=== PATIENT | female | born 1970 | race American Indian/Alaskan Native ===

== ENCOUNTER 2016-09-21 23:23 | Emergency (ER) | payer SELFPAY ==
[2016-09-22 01:08] LABS: Basophils % (Auto) 0.2 % (0.0-1.8); Eosinophils % (Auto) 1.2 % (0.0-4.3); Mean Corpuscular HGB Conc 31 % (30-34); Mean Corpuscular Hemoglobin 22 pg (28-32); Mean Corpuscular Volume 71 fl (79-97); Platelet Count 594 K/mm3 (140-440); Red Blood Count 4.11 M/mm3 (3.65-5.03); Red Cell Distribution Width 19.2 % (13.2-15.2); White Blood Count 10.5 K/mm3 (4.5-11.0)
[2016-09-22 02:19] LABS: Bilirubin,Urine NEG (Negative); Blood,Urine LG (Negative); Ketones,Urine NEG (Negative); Leukocyte Esterase,Urine SM (Negative); Mucus,Urine FEW /HPF; Nitrite,Urine NEG (Negative); Protein,Urine <15 mg/dL mg/dL (Negative); Urobilinogen,Urine < 2.0 mg/dL (<2.0)
--- NOTE | 2016-09-22 02:35 | Emergency Department Report ---
ED General Adult HPI - General Chief complaint: Vaginal Bleeding Stated complaint: VAGINAL BLEEDING Time Seen by Provider: 09/22/16 02:11 Source: patient Mode of arrival: Ambulatory Limitations: No Limitations - History of Present Illness Initial comments: This is a 46-year-old female. She is previously unknown to me. [place] She does not have a primary care doctor. She does not have any chronic medical conditions. The patient presents to the ER complaining of vaginal bleeding. She reports that after April, her menstruation stopped. She reports that it began again in June. She reports essentially intermittent bleeding since June. She reports that the bleeding has recently increased. She reports unintentional weight gain. In the past 24 hours, she has used 7 pads. There is no headache, neck pain, chest pain, abdominal pain or shortness of breath. No dizziness or lightheadedness. No irritative or obstructive urinary symptoms. Symptoms have no exacerbating or relieving factors. She reports that she is not . -: Gradual Consistency: intermittent Improves with: none Worsens with: none Associated Symptoms: denies: confusion, chest pain, cough, diaphoresis, fever/ chills, headaches, loss of appetite, malaise, nausea/vomiting, rash, shortness of breath, syncope, weakness - Related Data Previous Rx's Medication Instructions Recorded Last Taken Type Ferrous Sulfate [Feosol 325 MG tab] 325 mg PO TID #90 tablet 09/22/16 Unknown Rx Allergies Allergy/AdvReac Type Severity Reaction Status Date / Time Penicillins Allergy Rash Verified 09/22/16 00:46 ED Review of Systems ROS: Stated complaint: VAGINAL BLEEDING Other details as noted in HPI Constitutional: denies: fever Eyes: denies: vision change ENT: denies: epistaxis Respiratory: denies: cough Cardiovascular: denies: chest pain Gastrointestinal: as per HPI. denies: vomiting Genitourinary: abnormal menses Musculoskeletal: denies: arthralgia Skin: denies: lesions Neurological: denies: weakness Psychiatric: anxiety ED Past Medical Hx - Past Medical History Previous Medical History?: No - Surgical History Past Surgical History?: No - Social History Smoking Status: Never Smoker Substance Use Type: Alcohol - Medications Home Medications: Home Medications Medication Instructions Recorded Confirmed Last Taken Type Ferrous Sulfate [Feosol 325 MG tab] 325 mg PO TID #90 tablet 09/22/16 Unknown Rx ED Physical Exam - General Limitations: No Limitations General appearance: alert, in no apparent distress - Head Head exam: Present: atraumatic, normocephalic - Eye Eye exam: Present: normal appearance, EOMI. Absent: nystagmus - ENT ENT exam: Present: normal exam, normal orophraynx, mucous membranes moist, normal external ear exam - Neck Neck exam: Present: normal inspection, full ROM. Absent: tenderness, meningismus - Respiratory Respiratory exam: Present: normal lung sounds bilaterally. Absent: respiratory distress, wheezes, rales, rhonchi, stridor, chest wall tenderness, accessory muscle use, decreased breath sounds, prolonged expiratory - Cardiovascular Cardiovascular Exam: Present: regular rate, normal rhythm, normal heart sounds. Absent: bradycardia, tachycardia, irregular rhythm, systolic murmur, diastolic murmur, rubs, gallop - GI/Abdominal GI/Abdominal exam: Present: soft, normal bowel sounds. Absent: distended, tenderness, guarding, rebound, rigid, pulsatile mass - Extremities Exam Extremities exam: Present: normal inspection, full ROM, normal capillary refill. Absent: tenderness, pedal edema, joint swelling, calf tenderness - Back Exam Back exam: Present: normal inspection, full ROM. Absent: tenderness, CVA tenderness (R), CVA tenderness (L), muscle spasm, paraspinal tenderness, vertebral tenderness - Neurological Exam Neurological exam: Present: alert, oriented X3, normal gait, other (Extraocular movements intact. Tongue midline. No facial droop. Facial sensation intact to light touch in the V1, V2, V3 distribution bilaterally. 5 and 5 strength in 4 extremities.. Sensation is intact to light touch in 4 extremities.). Absent : motor sensory deficit - Psychiatric Psychiatric exam: Present: normal affect, normal mood - Skin Skin exam: Present: warm, dry, intact, normal color. Absent: rash ED Course Vital Signs 09/22/16 09/22/16 09/22/16 00:39 02:51 02:52 Temperature 97.9 F Pulse Rate 80 71 Respiratory 16 16 Rate Blood Pressure 184/117 Blood Pressure 151/73 [Left] O2 Sat by Pulse 100 100 100 Oximetry - Reevaluation(s) Reevaluation #1: 09/22/16 02:34 Differential diagnosis: Menstruation, , dysfunctional uterine bleeding , menopause Assessment and plan: 46-year-old female with intermittent vaginal bleeding for months. She is afebrile with reassuring vital signs with the exception of hypertension and elevated blood pressure. Has a mild microcytic anemia, is not symptomatic at this time. She is not . Symptoms are most likely consistent with menopause. 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 Elevated blood pressure is appreciated, it is asymptomatic, and the patient is instructed as to the importance of outpatient follow-up for further evaluation and management. Her repeat blood pressure is 168/105, and is asymptomatic. There does not appear to be any emergent condition at this time, the patient is medically suitable to follow-up as an outpatient. She will be discharged at this time, return precautions are reviewed. ED Medical Decision Making - Lab Data Result diagrams: 09/22/16 00:52 Vital Signs 09/22/16 00:39 Temperature 97.9 F Pulse Rate 80 Blood Pressure 184/117 O2 Sat by Pulse 100 Oximetry Lab Results 09/22/16 09/22/16 09/22/16 Range/Units 00:52 00:52 01:46 WBC 10.5 (4.5-11.0) K/mm3 RBC 4.11 (3.65-5.03) M/mm3 Hgb 9.0 L (10.1-14.3) gm/dl Hct 29.0 L (30.3-42.9) % MCV 71 L (79-97) fl MCH 22 L (28-32) pg MCHC 31 (30-34) % RDW 19.2 H (13.2-15.2) % Plt Count 594 H (140-440) K/mm3 Lymph % (Auto) 27.6 (13.4-35.0) % Saunders % (Auto) 7.8 H (0.0-7.3) % Eos % (Auto) 1.2 (0.0-4.3) % Baso % (Auto) 0.2 (0.0-1.8) % Lymph # 2.9 (1.2-5.4) K/mm3 Saunders # 0.8 (0.0-0.8) K/mm3 Eos # 0.1 (0.0-0.4) K/mm3 Baso # 0.0 (0.0-0.1) K/mm3 Seg Neutrophils % 63.2 (40.0-70.0) % Seg Neutrophils # 6.6 (1.8-7.7) K/mm3 HCG, Quant < 2 (0-4) mIU/mL Urine Bilirubin Neg (Negative) Urine RBC (Auto) 132.0 (0.0-6.0) /HPF U Epithel Cells (Auto) 4.0 (0-13.0) /HPF Critical care attestation.: If time is entered above; I have spent that time in minutes in the direct care of this critically ill patient, excluding procedure time. ED Disposition Clinical Impression: Vaginal bleeding, Elevated blood pressure Disposition: DISCHARGED TO HOME OR SELFCARE Is pt being admited?: No Does the pt Need Aspirin: No Condition: Stable Instructions: Menopause (ED) Additional Instructions: Laboratory studies indicated at urine . Laboratory studies indicated minimal anemia. Take the iron sulfate supplementation as directed. This medication may constipate, and may turn the color of stool to black. 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 In addition, your blood pressure was elevated in the emergency department. This should be followed up by her primary care doctor within the recommended timeframe. It is very important to manage blood pressure appropriately with an outpatient primary care doctor, because hypertension came cause long-term complications such as stroke, heart attack, disability, , paralysis. Return to the ER right away with bleeding more than 2 pads per hour, dizziness, lightheadedness, chest pain, shortness of breath, new, worsening or different symptoms. Prescriptions: Ferrous Sulfate [Feosol 325 MG tab] 325 mg PO TID #90 tablet Referrals: PRIMARY MD SEAN [Primary Care Provider] - 3-5 Days TATYANA ROSAS MD [Staff Physician] - 3-5 Days [facility] [Provider Group] - 3-5 Days [facility] [Provider Group] - 3-5 Days [facility] [Provider Group] - 3-5 Days [facility] [Provider Group] - 3-5 Days
[2016-09-22 02:53] VITALS: BP 151/73
== END 2016-09-22 03:00 | disposition home or self-care (01) ==
LOC: ED 23:23
DX: N93.9 Abnormal uterine and vaginal bleeding, unspecified (principal); R03.0 Elevated blood-pressure reading, without diagnosis of hypertension; Z88.0 Allergy status to penicillin
CPT/HCPCS: 36415; 81001; 81025; 84702; 85025; 86850; 86900; 86901; 99283